=== PATIENT | female | born 1940 | race Caucasian/White ===

== ENCOUNTER 2024-08-13 13:50 | Inpatient (IN) | payer OTHER ==
[~2024-08-13] VITALS: Ht 157.5 cm; Wt 56.7 kg
[2024-08-13 15:21] LABS: CALCIUM 9.1 mg/dL (8.5-10.1); CARBON DIOXIDE 23 mmol/L (21-32); CHLORIDE 107 mmol/L (98-107); CREATININE 0.9 mg/dL (0.6-1.3); GLUCOSE 81 mg/dL (74-106); POTASSIUM 4.6 mmol/L (3.5-5.1); SODIUM SERUM 141 mmol/L (136-145); UREA NITROGEN, BLOOD 29 mg/dL (7-18)
[2024-08-13 15:24] LABS: BASOPHILS % (AUTO) 0.3 % (0.0-2.0); EOSINOPHILS # (AUTO) 0.2 K/uL (0.0-0.7); EOSINOPHILS % (AUTO) 2.4 % (0.0-7.0); LYMPHOCYTES # (AUTO) 1.9 K/uL (0.8-4.8); MEAN CORPUSCULAR HEMOGLOBIN 30.6 uug (24.7-32.8); MEAN CORPUSCULAR HGB CONC 33 g/dL (32.3-35.6); MEAN CORPUSCULAR VOLUME 91.6 fL (75.5-95.3); MONOCYTES # (AUTO) 0.7 K/uL (0.1-1.30); MONOCYTES % (AUTO) 9.6 % (0.0-11.0); NEUTROPHILS # (AUTO) 4.7 K/uL (1.8-8.9); NEUTROPHILS % (AUTO) 62.7 % (38.5-71.5); PLATELET COUNT (AUTO) 162 K/uL (179-408); RED CELL DISTRIBUTION WIDTH 13.8 % (12.3-17.7); WHITE BLOOD COUNT (AUTO) 7.5 K/uL (3.8-11.8)
[2024-08-13 15:25] LABS: DIFFERENTIAL COMMENT 1
[2024-08-13 15:27] LABS: ALANINE AMINOTRANSFERASE 40 U/L (14-59); ALBUMIN 3.2 g/dL (3.4-5.0); ALKALINE PHOSPHATASE 44 U/L (50-136); ASPARTATE AMINOTRANSFERASE 27 U/L (15-37); BILIRUBIN,DIRECT 0.2 mg/dL (0.0-0.2); BILIRUBIN,TOTAL 0.4 mg/dL (0.2-1.0); TOTAL PROTEIN, SERUM 6.8 g/dL (6.4-8.2)
[2024-08-13 16:18] LABS: *BILIRUBIN,URIN NEGATIVE (NEGATIVE); *BLOOD, URINE NEGATIVE (NEGATIVE); *CLARITY,URINE CLEAR (CLEAR); *COLOR,URINE YELLOW (YELLOW); *KETONES,URINE NEGATIVE (NEGATIVE); *PROTEIN,URINE NEGATIVE (NEGATIVE); *UROBILINOGEN,URINE 0.2 E.U./dl (NORMAL); LEUKOCYTE ESTERASE ,URINE NEGATIVE (NEGATIVE); NITRITE, URINE NEGATIVE (NEGATIVE); UGLUCOSE NEGATIVE (NEGATIVE)
[2024-08-13] MEDS ORDERED: SIMV-46 PO (16:30)
[2024-08-13] MEDS ORDERED: MIRT-121 PO (16:30)
[2024-08-13] MEDS ORDERED: ASPI81TA31 PO (16:30)
[2024-08-13] MEDS ORDERED: CLON0.1T PO (16:30)
[2024-08-13] MEDS ORDERED: LACO50TA2 PO (16:30)
[2024-08-13] MEDS ORDERED: AMLO5TAB4 PO (16:30)
[2024-08-13] MEDS ORDERED: LISI10TA29 PO (16:30)
[2024-08-13] MEDS ORDERED: GABA300C PO (16:30)
[2024-08-13] MEDS ORDERED: LACO100T2 PO (17:40)
[2024-08-13] MEDS ORDERED: MIRT7.5T10 PO (17:48)
[2024-08-13] MEDS ORDERED: CLONIDINE HCL 0.1 MG TABLET PO PRN (18:15)
[2024-08-13] MEDS ORDERED: MAGNESIUM HYDROXIDE 30 ML LIQUID UDC PO PRN (18:30)
[2024-08-13] MEDS: GABAPENTIN 300 MG CAPSULE PO SCH (18:41)
[2024-08-13 19:52] VITALS: BP 149/47; TEMP 97.6; O2SAT 94
[2024-08-13] MEDS: SIMVASTATIN 20 MG TABLET PO SCH (20:35)
[2024-08-13] MEDS: MIRTAZAPINE 15 MG TABLET PO SCH (20:35)
[2024-08-13] MEDS: ACETAMINOPHEN 325 MG TABLET PO PRN (20:38)
[2024-08-13] MEDS ORDERED: Medication Not On Formulary EA (Mirtazapine 7.5 MG) PO SCH (21:00)
[2024-08-14 01:07] VITALS: BP 148/51; TEMP 98; O2SAT 93
[2024-08-14 05:20] VITALS: BP 153/57; TEMP 97.7; O2SAT 93
[2024-08-14] MEDS: PANTOPRAZOLE SODIUM 40 MG TABLET.DR PO SCH (06:26)
[2024-08-14 07:19] LABS: BASOPHILS % (AUTO) 0.6 % (0.0-2.0); EOSINOPHILS # (AUTO) 0.2 K/uL (0.0-0.7); EOSINOPHILS % (AUTO) 4.4 % (0.0-7.0); HEMATOCRIT 33.4 % (31.2-41.9); HEMOGLOBIN 11.3 g/dL (10.9-14.3); LYMPHOCYTES # (AUTO) 1.9 K/uL (0.8-4.8); LYMPHOCYTES % (AUTO) 34.8 % (20.5-51.5); MEAN CORPUSCULAR HEMOGLOBIN 31.5 uug (24.7-32.8); MEAN CORPUSCULAR HGB CONC 34 g/dL (32.3-35.6); MONOCYTES # (AUTO) 0.6 K/uL (0.1-1.30); MONOCYTES % (AUTO) 11.3 % (0.0-11.0); NEUTROPHILS # (AUTO) 2.7 K/uL (1.8-8.9); NEUTROPHILS % (AUTO) 48.9 % (38.5-71.5); PLATELET COUNT (AUTO) 158 K/uL (179-408); RED BLOOD CELL COUNT(AUTO) 3.59 MIL/uL (3.63-4.92); RED CELL DISTRIBUTION WIDTH 14.1 % (12.3-17.7); WHITE BLOOD COUNT (AUTO) 5.5 K/uL (3.8-11.8)
[2024-08-14 07:40] VITALS: BP 149/57; TEMP 98.3; O2SAT 97
[2024-08-14 07:41] LABS: DIFFERENTIAL COMMENT 1
[2024-08-14 07:52] LABS: THYROID STIMULATING HORMONE 0.882 mIU/mL (0.358-3.740)
[2024-08-14 08:28] LABS: ALANINE AMINOTRANSFERASE 38 U/L (14-59); ALBUMIN 2.9 g/dL (3.4-5.0); ALKALINE PHOSPHATASE 41 U/L (50-136); ASPARTATE AMINOTRANSFERASE 24 U/L (15-37); BILIRUBIN,TOTAL 0.4 mg/dL (0.2-1.0); CALCIUM 8.7 mg/dL (8.5-10.1); CARBON DIOXIDE 24 mmol/L (21-32); CHLORIDE 110 mmol/L (98-107); CHOLESTEROL 177 mg/dL (<200); CREATININE 0.8 mg/dL (0.6-1.3); GLUCOSE 103 mg/dL (74-106); HDL CHOLESTEROL 86 mg/dL (40-60); MAGNESIUM 2.1 mg/dL (1.8-2.4); PHOSPHOROUS 3.1 mg/dL (2.5-4.9); POTASSIUM 4.6 mmol/L (3.5-5.1); SODIUM SERUM 143 mmol/L (136-145); TOTAL PROTEIN, SERUM 6.4 g/dL (6.4-8.2); TRIGLYCERIDES 37 MG/DL (30-150); UREA NITROGEN, BLOOD 24 mg/dL (7-18)
[2024-08-14] MEDS: AMLODIPINE 5 MG TABLET PO SCH (09:00)
[2024-08-14] MEDS: ASPIRIN 81 MG TAB.CHEW PO SCH (09:00)
[2024-08-14] MEDS: LISINOPRIL 10 MG TABLET PO SCH (09:00)
[2024-08-14 11:38] VITALS: BP 146/54; TEMP 98.1; O2SAT 93
[2024-08-14 12:52] VITALS: BP_SYST 146; BP_SYST 149; BP_SYST 150; BP_DIAS 52; BP_DIAS 53; BP_DIAS 58; O2SAT 93
[2024-08-14 14:30] VITALS: BP 143/59; TEMP 98; O2SAT 93
[2024-08-16 21:07] LABS: HEPATITIS B CORE AB, IgM Negative (Negative); HEPATITIS B CORE AB, TOTAL Negative (Negative); HEPATITIS B SURFACE AB, QUAL Non Reactive (.); HEPATITIS B SURFACE AG Negative (Negative); HEPATITIS Be ANTIGEN Negative (Negative); HEPATITIS C VIRUS ANTIBODY Non Reactive (Non Reactive)
== END 2024-08-14 14:33 | disposition home or self-care (01) | DRG 641 ==
LOC: ER 13:50 → TELE3 17:27
PROVIDERS: ADMIT Internal Medicine; ATTEND Internal Medicine
DX: E86.0 Dehydration (principal); E44.0 Moderate protein-calorie malnutrition; I49.8 Other specified cardiac arrhythmias; R00.1 Bradycardia, unspecified; E88.09 Other disorders of plasma-protein metabolism, not elsewhere classified; M50.321 Other cervical disc degeneration at C4-C5 level; Z79.899 Other long term (current) drug therapy; J84.10 Pulmonary fibrosis, unspecified; S50.312A Abrasion of left elbow, initial encounter; S80.212A Abrasion, left knee, initial encounter; W18.39XA Other fall on same level, initial encounter; Y93.89 Activity, other specified; Y92.512 Supermarket, store or market as the place of occurrence of the external cause; M99.51 Intervertebral disc stenosis of neural canal of cervical region; D69.6 Thrombocytopenia, unspecified; E78.5 Hyperlipidemia, unspecified; Z86.73 Personal history of transient ischemic attack (TIA), and cerebral infarction without residual deficits; G40.909 Epilepsy, unspecified, not intractable, without status epilepticus; Z86.79 Personal history of other diseases of the circulatory system; M15.9 Polyosteoarthritis, unspecified; I10 Essential (primary) hypertension; Z88.2 Allergy status to sulfonamides; Z96.641 Presence of right artificial hip joint; Z98.890 Other specified postprocedural states
CPT/HCPCS: 36415; 70450; 71045; 72125; 83605; 83735; 84100; 84443; 84484; 85025; 85730; 86704; 86705; 86706; 86803; 87040; 87340; 87350; 87521; G0378